=== PATIENT | female | born 1995 | race Caucasian/White ===

== ENCOUNTER 2023-03-01 11:31 | Inpatient (IN) | payer OTHER, SELFPAY ==
[2023-03-01] MEDS ORDERED: Ibuprofen 800 MG TAB PO PRN (12:21)
[2023-03-01] MEDS ORDERED: Methylergonovine 0.2 MG/ML VIAL IM PRN (12:21)
[2023-03-01] MEDS ORDERED: Ondansetron PF 4 MG/2 ML Vial IVP PRN ×2 (12:21→17:10)
[2023-03-01] MEDS ORDERED: hydrALAZINE 20 MG/ML VIAL SLOW IVP PRN (12:21)
[2023-03-01] MEDS ORDERED: fentaNYL 50 mcg/mL 1 mL Vial SLOW IVP PRN (12:21)
[2023-03-01] MEDS ORDERED: Lidocaine 1% (PF) 30 ML VIAL SC PRN (12:21)
[2023-03-01] MEDS ORDERED: Promethazine HCl 25 MG/ML VIAL IM PRN ×2 (12:21→17:10)
[2023-03-01] MEDS ORDERED: HYDROcodone/Acetaminophen 5/325 mg Tablet PO PRN ×2 (12:21)
[2023-03-01] MEDS ORDERED: Misoprostol 200 MCG TAB PR PRN (12:21)
[2023-03-01] MEDS ORDERED: Oxytocin 30 units/NS 500 ML 500 ML IV SCH ×2 (12:30)
[2023-03-01] MEDS ORDERED: Bupivacaine 0.25% HCL 30 ML VIAL ONE (13:00)
[2023-03-01] MEDS ORDERED: Bupivacaine PF 0.5% 30 ML VIAL ONE (13:00)
[2023-03-01] MEDS: Lactated Ringer's 1,000 ML IV SCH (13:00)
[2023-03-01 13:11] LABS: Hematocrit 33.6 % (34.9-44.5); Hemoglobin 11.4 g/dL (12.0-15.5); Mean Corpuscular HGB CONC 33.9 g/dL (32.0-36.0); Mean Corpuscular Hemoglobin 29.2 pg (27.0-33.0); Mean Corpuscular Volume 85.9 fl (81.6-98.3); Mean Platelet Volume 12.7 fl (7.4-10.4); Platelet Count 215 10x3/uL (150-450); RBC Distribution Width 14.3 % (11.5-14.5); Red Blood Cell (RBC) Count 3.91 10x6/uL (3.90-5.03); White Blood Cell (WBC) Count 14.8 10x3/uL (3.5-10.5)
[2023-03-01 13:45] LABS: HBSAg Index 0.17 S/CO (0-0.99); Hep B Surf Ag - L&D Non-Reactive S/CO (NonReactive); Syphilis Antibody Nonreactive (Nonreactive); Syphilis Antibody Index 0.06 S/CO (<1.00 Non-Reactive)
[2023-03-01 13:55] VITALS: BMI 29.9
[2023-03-01] MEDS ORDERED: fentaNYL/Ropivacaine Epidural 100 ML ONE (16:17)
[2023-03-01] MEDS ORDERED: Naloxone HCl 0.4 mg/ml Vial IVP PRN ×2 (17:10)
[2023-03-01] MEDS ORDERED: Lactated Ringer's 500 ML IV PRN (17:10)
[2023-03-01] MEDS ORDERED: diphenhydrAMINE 50 MG/ML VIAL IVP PRN (17:10)
[2023-03-01] MEDS ORDERED: ePHEDrine Sulfate 50 MG/10 ML VIAL SLOW IVP PRN (17:10)
[2023-03-01] MEDS ORDERED: Moisturizing Cream (Eucerin) 113 GM JAR TOP PRN (17:10)
[2023-03-01] MEDS ORDERED: fentaNYL 2 mcg/Ropivacaine 0.2% Epidural 100 ML CADD EPIDURAL SCH (17:15)
[2023-03-01] MEDS ORDERED: Communication Order-Pharmacy FS SCH (17:15)
[2023-03-01] MEDS: Acetaminophen 325 MG TAB PO PRN (19:10)
[2023-03-02] MEDS ORDERED: fentaNYL/Ropivacaine Epidural 100 ML ONE (00:34)
[2023-03-02] MEDS ORDERED: fentaNYL 50 mcg/mL 1 mL Vial ONE ×2 (00:49→02:52)
[2023-03-02] MEDS: Lactated Ringer's 1,000 ML IV SCH (06:06)
[2023-03-02] MEDS ORDERED: Bisacodyl 10 MG SUPP PR PRN (07:26)
[2023-03-02] MEDS ORDERED: hydrALAZINE 20 MG/ML VIAL SLOW IVP PRN (07:26)
[2023-03-02] MEDS ORDERED: Milk Of Magnesia 30 ML UDCUP PO PRN (07:26)
[2023-03-02] MEDS ORDERED: Boostrix 0.5 ML (Tdap) VIAL (>/=7 yrs of age) IM ONE (07:26)
[2023-03-02] MEDS: Docusate 100 MG CAP PO SCH ×2 (09:33→19:34)
[2023-03-02] MEDS: Prenatal Vitamin 1 TAB PO SCH (09:34)
[2023-03-02] MEDS: Acetaminophen 325 MG TAB PO PRN (14:23)
[2023-03-02] MEDS: Ibuprofen 800 MG TAB PO SCH (19:34)
[2023-03-02] MEDS: Acetaminophen 325 MG TAB PO SCH (22:10)
[2023-03-02] MEDS ORDERED: Loratadine 10 MG TAB PO PRN (22:13)
[2023-03-02] MEDS ORDERED: diphenhydrAMINE 25 MG CAP PO SCH (22:15)
[2023-03-02] MEDS ORDERED: Cyclobenzaprine 10 MG TAB PO SCH (22:15)
[2023-03-03] MEDS: Acetaminophen 325 MG TAB PO SCH ×7 (01:41→23:40)
[2023-03-03] MEDS: Ibuprofen 800 MG TAB PO SCH ×3 (04:39→23:39)
[2023-03-03] MEDS: Ferrous Sulfate 325 MG TAB PO SCH ×2 (06:47→18:34)
[2023-03-03] MEDS: Prenatal Vitamin 1 TAB PO SCH (09:07)
[2023-03-03] MEDS: Docusate 100 MG CAP PO SCH ×2 (09:07→19:42)
[2023-03-03] MEDS ORDERED: Benzocaine-Menthol 82.5 ML CAN TOP PRN (21:48)
[2023-03-04] MEDS: Acetaminophen 325 MG TAB PO SCH ×4 (04:04→17:00)
[2023-03-04] MEDS: Docusate 100 MG CAP PO SCH (08:03)
[2023-03-04] MEDS: Ferrous Sulfate 325 MG TAB PO SCH ×2 (08:03→15:50)
[2023-03-04] MEDS: Prenatal Vitamin 1 TAB PO SCH (08:03)
[2023-03-04] MEDS: Ibuprofen 800 MG TAB PO SCH ×2 (08:03→15:48)
[2023-03-04 20:18] VITALS: BP 131/87; TEMP 98.9
== END 2023-03-04 20:38 | disposition home or self-care (01) | DRG 807 ==
LOC: CSHLD/OP 11:31 → CSHLD 13:49 → CSHPP 03-02 07:45
PROVIDERS: ADMIT Obstetrics & Gynecology; ATTEND Obstetrics & Gynecology
PROC: 10E0XZZ Delivery of Products of Conception, External Approach (ICD-10-PCS; principal; 2023-03-01)
PROC: 0KQM0ZZ Repair Perineum Muscle, Open Approach (ICD-10-PCS; 2023-03-01)
DX: O42.02 Full-term premature rupture of membranes, onset of labor within 24 hours of rupture (principal); Z37.0 Single live birth; Z3A.40 40 weeks gestation of pregnancy; O48.0 Post-term pregnancy; O70.1 Second degree perineal laceration during delivery
CPT/HCPCS: 36415; 51702; 85027; 86780; 86850; 86900; 86901; 87340; 99285; J1200; J2210; J2405; J2590; J7120; S0020